=== PATIENT | male | born 1970 | race Caucasian/White ===

== ENCOUNTER → 2024-01-12 13:34 | Outpatient (REF) | payer OTHER, SELFPAY | LOC: RAD 13:34 | PROVIDERS: ATTENDING PHYSICIAN Radiology Diagnostic Radiology | DX: Z18.10 Retained metal fragments, unspecified (principal) | CPT/HCPCS: 70360; 71046 ==

== ENCOUNTER → 2024-01-15 08:26 | Outpatient (REF) | payer OTHER, SELFPAY | LOC: MRI 08:26 | PROVIDERS: ATTENDING PHYSICIAN Emergency Medicine Sports Medicine; FAMILY PHYSICIAN Internal Medicine | DX: M22.42 Chondromalacia patellae, left knee (principal) | CPT/HCPCS: 73721 ==

== ENCOUNTER 2024-02-29 06:03 | Emergency (ER) | payer OTHER, SELFPAY ==
[2024-02-29 06:03] VITALS: BMI 35.5
[2024-02-29 06:04] VITALS: BP 164/109
[2024-02-29 06:14] VITALS: BP 156/105
--- NOTE | 2024-02-29 06:50 | ED.GENMED ---
History of Present Illness
General
Chief Complaint: Throat Problem
Time Seen by Provider: 02/29/24 06:14
History of Present Illness
History of Present Illness:
54-year-old male with history of GERD presenting to the emergency department for throat swelling and discomfort. Reports that he woke up with symptoms. Notes that he has had swelling in his mouth in the past, 2020, unclear etiology at that time.
He is not on any blood pressure medications. Denies fever or sick contacts. Notes pain discomfort with swallowing. Does note history of snoring at night. Denies chest pain or difficulty breathing. Reports that he is able to handle his
secretions. Denies additional acute medical complaints
Past History
Past History
ED Past Medical History: Other (Sleep apnea)
ED Past Surgical History: Appendectomy
Social History
Tobacco: Non-smoker
Alcohol: None
Drug: None
Personal:
Living: with family
Phy Exam
Physical Exam
Physical Exam:
General: Well-appearing, no clinical signs of dehydration, nontoxic and in no acute distress
HEENT: protecting airway, swelling to the uvula. No additional oropharyngeal swelling. Handling secretions without difficulty. No stridor
Neck: appears supple
CV: Normal heart rate, regular rhythm
Resp: No accessory muscle use, no increased work of breathing, lungs clear to auscultation bilaterally
Abd: No distention
Extremities: No deformities, no swelling
Neuro: alert, no focal neurologic deficit
: deferred
Rectal: deferred
Psych: Normal affect
Skin: Intact
Course
Orders/Labs/Results
Orders:
Orders
02/29/24 06:35
Dexamethasone Pf [Decadron] 10 mg PO NOW STA
Famotidine [Pepcid] 20 mg PO NOW STA
02/29/24 06:52
Rapid Strep Group A Urgent
NAHUN Source: Throat/Pharynx
Specimen Description:
Date Specimen was Collected: 02/29/24
Time Specimen was Collected: 06:51
Vital Signs
Initial and Last Documented VS:
Initial Vital Signs
Temp Pulse Resp BP Pulse Ox
98.2 F 71 20 164/109 92
02/29/24 06:04 02/29/24 06:04 02/29/24 06:04 02/29/24 06:04 02/29/24 06:04
Last Documented Vital Signs
Temp Pulse Resp BP Pulse Ox
98.2 F 71 20 156/105 92
02/29/24 06:04 02/29/24 06:04 02/29/24 06:04 02/29/24 06:14 02/29/24 06:15
MDM/Problems Addressed
MDM/Problems Addressed:
54-year-old male presenting with uvular swelling and discomfort. Vital signs are significant for hypertension.
On exam patient is well-appearing, no acute distress, no respiratory distress. Patient handling secretions without difficulty, no compromised airway. No stridor or wheezing. Examination appears most consistent with uvulitis of unclear etiology,
could be secondary to snoring. Patient otherwise afebrile, nontoxic. Will swab for strep. Will treat with Decadron and continue to closely monitor
08:00 -patient remained stable. No respiratory distress, no airway compromise. No worsening of swelling. At this time feel stable for discharge with close outpatient follow-up. Return precautions discussed and patient verbalized understanding
*Critical Care Note
Total Time (30-74mins, 75-104mins- exclusive of procedures): Not Applicable
ED Attending Note
-
Portions of this chart may have been created with voice recognition software.� Occasional wrong word or��sound alike� substitutions may have occurred due to the inherent limitations of voice recognition software.
Discharge Plan
Departure
Prescriptions:
No Action
doxycycline hyclate 100 MG capsule
100 mg PO DAILY Qty: 20 0RF
Referrals:
Affatamally-Giovana Sosa MD [Family Provider] -
Interventions
Interventions:
*Risk Screen - Suicide Last Done: 02/29/24 06:04
*General Assessment Last Done: 02/29/24 06:04
*Neglect/Abuse Screening Last Done: 02/29/24 06:04
*ED COVID-19 Vaccine History Last Done: 02/29/24 06:13
ED-EENT Assessment Last Done: 02/29/24 06:15
ED- Pulmonary Assessment Last Done: 02/29/24 06:15
Discharge Date and Time
Print Language: INDIAN
[2024-02-29] MEDS: PEPCID 20 MG PO (06:52)
[2024-02-29] MEDS: DECADRON 10 MG PO (06:52)
[2024-02-29 07:00] VITALS: BP 136/90
[2024-02-29 08:00] VITALS: BP 112/61
[2024-02-29 08:14] VITALS: BP 112/61
== END 2024-02-29 08:52 | disposition home or self-care (01) ==
LOC: EMR 06:03
PROVIDERS: EMERGENCY PHYSICIAN Student in an Organized Health Care Education/Training Program; FAMILY PHYSICIAN Internal Medicine
DX: K13.79 Other lesions of oral mucosa (principal); G47.30 Sleep apnea, unspecified; K21.9 Gastro-esophageal reflux disease without esophagitis
CPT/HCPCS: 99283; 87070; 87880